=== PATIENT | female | born 1990 ===

== ENCOUNTER 2021-09-12 12:58 | Inpatient (IN) | payer BC ==
[2021-09-12] MEDS ORDERED: Lidocaine 1% 30 ML SDV INJECT PRN (13:45)
[2021-09-12] MEDS ORDERED: Sodium Chloride 0.9% 10 ML Syringe FLUSH PRN (13:45)
[2021-09-12] MEDS ORDERED: Nalbuphine 10 MG/1 ML Vial IVPUSH PRN (13:45)
[2021-09-12] MEDS ORDERED: Carboprost Tromethamine 250 MCG/1 ML Amp IM PRN (13:45)
[2021-09-12] MEDS ORDERED: Nalbuphine 10 MG/1 ML Vial IM PRN (13:45)
[2021-09-12] MEDS ORDERED: Misoprostol 400 MCG (4 X 100 MCG TAB) RECTAL PRN (13:45)
[2021-09-12] MEDS ORDERED: Oxytocin/Normal Saline 30 UNIT/500 ML BAG IV SCH (13:45)
[2021-09-12] MEDS ORDERED: Methylergonovine 0.2 MG/1 ML Amp IM PRN (13:45)
[2021-09-12] MEDS ORDERED: fentaNYL 100 MCG/2 ML SDV IVPUSH PRN (13:45)
[2021-09-12] MEDS ORDERED: Acetaminophen 325 MG Tab PO PRN (13:45)
[2021-09-12] MEDS ORDERED: Tranexamic Acid 1,000 MG in Sodium Chloride 0.9% 100 ML IV PRN (13:45)
[2021-09-12] MEDS ORDERED: Lactated Ringers 1,000 ML IV ONE (13:45)
[2021-09-12] MEDS: Lactated Ringers 1,000 ML IV SCH ×2 (14:40→21:39)
[2021-09-12] MEDS: Ondansetron 4 MG/2 ML SDV IVPUSH PRN (20:42)
[2021-09-12] MEDS ORDERED: Sodium Chloride 0.9% 20 ML SDV ONE (21:02)
[2021-09-12] MEDS ORDERED: fentaNYL 100 MCG/2 ML SDV ITHECAL ONE (21:02)
[2021-09-12] MEDS ORDERED: EPINEPHrine 1 MG/ML SDV ONE ×2 (21:02)
[2021-09-12] MEDS ORDERED: Sodium Bicarbonate 4.2% 2.5 MEQ/5 ML SDV ONE ×2 (21:02)
[2021-09-12] MEDS ORDERED: fentaNYL 100 MCG/2 ML SDV ONE (21:02)
[2021-09-13] MEDS ORDERED: Oxytocin 10 Units/1 ML SDV IM PRN (02:48)
[2021-09-13] MEDS ORDERED: Benzocaine/Menthol 20%-0.5% Spray 78 GM Cannister TOP PRN (02:48)
[2021-09-13] MEDS ORDERED: Simethicone 80 MG Tab.Chew PO PRN (02:48)
[2021-09-13] MEDS ORDERED: Witch Hazel Medicated Pads 100/Jar TOP PRN (03:29)
[2021-09-13] MEDS: Ondansetron 4 MG/2 ML SDV IVPUSH PRN (04:00)
[2021-09-13] MEDS: Ibuprofen 800 MG Tab PO PRN ×2 (05:09→19:49)
[2021-09-13] MEDS: Prenatal Multivitamin with Calcium/Folic Acid/Iron Tab PO SCH (08:33)
[2021-09-13] MEDS: Docusate Sodium 100 MG Cap PO PRN ×2 (08:33→19:50)
[2021-09-14] MEDS: Ibuprofen 800 MG Tab PO PRN ×2 (09:16→19:44)
[2021-09-14] MEDS: Prenatal Multivitamin with Calcium/Folic Acid/Iron Tab PO SCH (09:16)
[2021-09-14] MEDS: Docusate Sodium 100 MG Cap PO PRN ×2 (09:16→19:44)
[2021-09-15] MEDS ORDERED: Ferrous Sulfate 325 MG Tab PO SCH (08:00)
[2021-09-15] MEDS: Ibuprofen 800 MG Tab PO PRN (11:55)
[2021-09-15] MEDS: Docusate Sodium 100 MG Cap PO PRN (11:56)
[2021-09-15] MEDS: Prenatal Multivitamin with Calcium/Folic Acid/Iron Tab PO SCH (11:57)
== END 2021-09-15 12:30 | disposition home or self-care (01) | DRG 560 ==
LOC: DL.OBCHECK 12:58 → DL.OB 14:11 → INTOOBSV 14:11 → OBSVTOIN 09-13 02:01
PROVIDERS: ADMIT Family Medicine; ATTEND Family Medicine
PROC: 10E0XZZ Delivery of Products of Conception, External Approach (ICD-10-PCS; principal; 2021-09-13)
PROC: 0KQM0ZZ Repair Perineum Muscle, Open Approach (ICD-10-PCS; 2021-09-13)
PROC: 00HU33Z Insertion of Infusion Device into Spinal Canal, Percutaneous Approach (ICD-10-PCS; 2021-09-13)
PROC: 3E0R3BZ Introduction of Anesthetic Agent into Spinal Canal, Percutaneous Approach (ICD-10-PCS; 2021-09-13)
DX: O42.02 Full-term premature rupture of membranes, onset of labor within 24 hours of rupture (principal); O99.02 Anemia complicating childbirth; D64.9 Anemia, unspecified; Z3A.38 38 weeks gestation of pregnancy; Z37.0 Single live birth; Z86.16 Personal history of COVID-19; O70.1 Second degree perineal laceration during delivery
CPT/HCPCS: 01967; 36415; 59409; 85027; 86592; A9270-GY; J0171; J2300; J2405; J2590; J3010; J7120